=== PATIENT | male | born 1960 | race Caucasian/White ===

== ENCOUNTER → 2017-08-08 | Outpatient (REF) ==
[~2017-08-08] MED LIST: AMBI10TA PO; CYCL10TA PO; MELO15TA4 PO; MOBI15TA PO; NAPR500T PO; NEUR300C PO; NEXI40CA PO; PERC10TA26 PO; PROZ20CA11 PO; SIMV40TA2 PO; TPS Cream TOP
--- NOTE | 2017-08-08 16:49 | REP ---
LUMBAR SPINE, SEVEN VIEWS: HISTORY: Rule out disc herniation. There is no acute fracture or subluxation. The intervertebral discs are decreased in height consistent with disc degeneration. Osteophytes are present on L2 through 5. There is narrowing of the right L4-5 and L5-S1 and left L5-S1 facet joints. IMPRESSION: Degenerative change as described above. Signed by Сергей Maria MD 08/08/2017 04:53 P
== END ==
LOC: M RAD 15:37
PROVIDERS: ATTEND Internal Medicine
DX: M51.36 Other intervertebral disc degeneration, lumbar region (principal); M51.37 Other intervertebral disc degeneration, lumbosacral region

== ENCOUNTER → 2018-01-13 | Outpatient (CLI) | payer OTHER | LOC: M PLARAD 09:06 | DX: M54.17 Radiculopathy, lumbosacral region (principal); M51.36 Other intervertebral disc degeneration, lumbar region | CPT/HCPCS: 72148 ==

== ENCOUNTER 2019-05-11 16:14 | Emergency (ER) | payer OTHER ==
[~2019-05-11] VITALS: Ht 180.3 cm; Wt 127.3 kg
[~2019-05-11 16:14] MED LIST changes: +MELO15TA28 PO; -MELO15TA4 PO; +NAPR-837 PO; -NAPR500T PO
[2019-05-11 16:15] VITALS: BP 158/78
== END 2019-05-11 18:36 | disposition left against medical advice (07) ==
LOC: M ED 16:14
DX: Z53.29 Procedure and treatment not carried out because of patient's decision for other reasons (principal)

== ENCOUNTER → 2021-07-14 | Outpatient (CLI) | payer OTHER ==
[~2021-07-14] MED LIST changes: +CYCL-707 PO; -CYCL10TA PO; -SIMV40TA2 PO; +SIMV40TA20 PO
[2021-07-14 14:06] LABS: APPEARANCE, URINE TURBID (CLEAR); BACTERIA, URINE AUTO NEGATIVE (NEGATIVE); BILIRUBIN, URINE AUTO NEGATIVE (NEGATIVE); BLOOD, URINE BLOOD 1+ (NEGATIVE); COLOR, URINE YELLOW (YELLOW); GLUCOSE, URINE (UA) AUTO NEGATIVE (NEGATIVE); KETONE, URINE AUTO NEGATIVE (NEGATIVE); LEUKOCYTE ESTERASE, URINE AUTO NEGATIVE (NEGATIVE); NITRITE, URINE AUTO NEGATIVE (NEGATIVE); PROTEIN, URINE AUTO NEGATIVE (NEGATIVE); RBC, URINE AUTO 3 /HPF (0-3); SPECIFIC GRAVITY URINE AUTO 1.017 (1.002-1.035); SQUAMOUS EPITHELIAL CELL UR AU 0 /HPF (0-6); UROBILINOGEN, URINE AUTO 0.2 mg/dL (0.0-2.0); WBC, URINE AUTO 0 /HPF (0-3)
[2021-07-14 15:32] LABS: BLOOD UREA NITROGEN 16 MG/DL (7-18); CALCIUM LEVEL 8.3 MG/DL (8.8-10.2); CARBON DIOXIDE LEVEL 32 MEQ/L (21-32); CHLORIDE LEVEL 107 MEQ/L (98-107); CREATININE FOR GFR 0.67 MG/DL (0.70-1.30); GLOMERULAR FILTRATION RATE > 60.0 (>49); GLUCOSE, FASTING 98 MG/DL (70-100); POTASSIUM SERUM 4.3 MEQ/L (3.5-5.1); SODIUM LEVEL 140 MEQ/L (136-145)
== END ==
LOC: M PLALAB 11:45
PROVIDERS: ATTEND Nurse Practitioner Family
DX: R31.0 Gross hematuria (principal)

== ENCOUNTER → 2021-07-28 | Outpatient (CLI) | payer OTHER ==
[~2021-07-28] MED LIST changes: +ISOVUE-370 76% 100ML VIAL As Ordered ONE
--- NOTE | 2021-07-28 09:11 | REP ---
INDICATION: HEMATURIA UROGRAM. COMPARISON: Comparison CT study February 21, 2013.. TECHNIQUE: Contrast dose: 100 ML of Isovue [address] technique: Pre contrast and dual phase post-contrast helical scanning is acquired. 3 mm axial images re-formatted. Coronal and sagittal MPR images are included and 3D surface rendered images are generated of the urinary tract from the delayed acquisition. 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 The lung bases are clear on axial CT images. The liver and the spleen are normal in size. No focal hepatic or splenic lesion is seen. Gallbladder and pancreas are unremarkable. Normal adrenal glands are observed bilaterally. There is some vascular calcification in a normal caliber aorta. Pre contrast study demonstrates a tiny calcific density in the region of the collecting system in the lower pole of the right kidney consistent with a tiny intrarenal calculus. No hydronephrosis is seen. Kidneys enhance symmetrically postcontrast and are morphologically intact. No renal mass lesion is observed. Delayed scan images show no filling defect in the upper tract collecting systems. The ureters describe a normal course to the urinary bladder. There is mild enlargement of the prostate. No bladder mass lesion is observed. There is some thickening of the urinary bladder mosqueda diffusely. Small and large intestinal bowel loops are unremarkable. No abdominal wall defect is seen. Bone window settings show degenerative disc disease in the spine. No bony destructive lesion is appreciated. Surface rendered 3D imaging shows no additional abnormality. IMPRESSION: There is a tiny calcific density in the lower pole collecting system of the right kidney consistent with a tiny intrarenal stone, 1 mm range. No hydronephrosis. Prostate enlargement and mild diffuse bladder wall thickening. Otherwise negative urinary tract CT. <Electronically signed by Nick Peters > 07/28/21 0920
== END ==
LOC: M RAD 07:51
PROVIDERS: ATTEND Nurse Practitioner Family
DX: R31.0 Gross hematuria (principal)
CPT/HCPCS: 74178; Q9967

== ENCOUNTER → 2021-08-11 | Outpatient (REF) | payer OTHER ==
[~2021-08-11] MED LIST changes: -ISOVUE-370 76% 100ML VIAL As Ordered ONE
[2021-08-11 17:33] LABS: APPEARANCE, URINE HAZY (CLEAR); BACTERIA, URINE AUTO NEGATIVE (NEGATIVE); BILIRUBIN, URINE AUTO NEGATIVE (NEGATIVE); BLOOD, URINE BLOOD 1+ (NEGATIVE); COLOR, URINE YELLOW (YELLOW); GLUCOSE, URINE (UA) AUTO NEGATIVE (NEGATIVE); KETONE, URINE AUTO NEGATIVE (NEGATIVE); LEUKOCYTE ESTERASE, URINE AUTO NEGATIVE (NEGATIVE); NITRITE, URINE AUTO NEGATIVE (NEGATIVE); PROTEIN, URINE AUTO NEGATIVE (NEGATIVE); RBC, URINE AUTO 11 /HPF (0-3); SPECIFIC GRAVITY URINE AUTO 1.017 (1.002-1.035); SQUAMOUS EPITHELIAL CELL UR AU 0 /HPF (0-6); UROBILINOGEN, URINE AUTO 0.2 mg/dL (0.0-2.0); WBC, URINE AUTO 1 /HPF (0-3)
== END ==
LOC: M SMT 16:42
PROVIDERS: ATTEND Urology
DX: R31.0 Gross hematuria (principal)

== ENCOUNTER → 2021-12-15 | Outpatient (REF) | payer OTHER | LOC: M SMT 17:28 | PROVIDERS: ATTEND Urology | DX: R31.0 Gross hematuria (principal) | CPT/HCPCS: 81001; 88108; G0463 ==

== ENCOUNTER → 2022-02-16 | Outpatient (CLI) | payer OTHER | LOC: M PLALAB 10:40 | PROVIDERS: ATTEND Urology | DX: Z12.5 Encounter for screening for malignant neoplasm of prostate (principal) | CPT/HCPCS: 36415; G0103 ==

== ENCOUNTER → 2022-03-23 | Outpatient (CLI) | payer OTHER | LOC: M LABSMTC 11:27 | PROVIDERS: ATTEND Pediatrics | DX: Z20.822 Contact with and (suspected) exposure to COVID-19 (principal) | CPT/HCPCS: 87426; C9803 ==

== ENCOUNTER → 2023-03-01 | Outpatient (CLI) | payer OTHER | LOC: M PLAIMG 06:40 | PROVIDERS: ATTEND Orthopaedic Surgery | DX: M17.0 Bilateral primary osteoarthritis of knee (principal); M23.52 Chronic instability of knee, left knee; M23.51 Chronic instability of knee, right knee ==

== ENCOUNTER → 2023-08-15 | Outpatient (CLI) | payer OTHER | LOC: M SLEEP 20:00 | PROVIDERS: ATTEND Internal Medicine | DX: G47.33 Obstructive sleep apnea (adult) (pediatric) (principal) ==